=== PATIENT | male | born 1980 | race Caucasian/White ===

== ENCOUNTER 2022-10-22 16:44 | Emergency (ER) | payer SELFPAY ==
[~2022-10-22 16:44] MED LIST: Iopamidol-370 76% 500 ML MDV (1 ML CHARGE) ONE
[2022-10-22 17:10] LABS: #Monocytes 0.7 thou/uL (0.11-0.59); %Basophils 0.2 % (0.0-1.0); %Eosinophils 0.2 % (0.0-10.0); %Lymphocytes 5.7 % (21.0-51.0); %Monocytes 5.3 % (0.0-10.0); %Neutrophils 87.7 % (42.0-75.0); Hemoglobin 14.6 g/dL (14.0-18.0); Mean Corpuscular HGB CONC 36.6 g/dL (32.0-36.0); Mean Platelet Volume 9.2 fL (7.4-10.4); Platelet Count 224 10x3/uL (130-400); RBC Distribution Width 11.3 % (11.5-14.5); Red Blood Cell (RBC) Count 4.29 mill/uL (4.70-6.10); White Blood Cell (WBC) Count 12.5 10x3/uL (4.8-10.8)
[2022-10-22] MEDS ORDERED: Boostrix 0.5 ML (Tdap) VIAL (>/=7 yrs of age) ONE (17:31)
[2022-10-22 17:32] LABS: ALT (SGPT) 27 U/L (8-55); AST (SGOT) 29 U/L (5-34); Albumin 4.2 g/dL (3.5-5.0); Alkaline Phosphatase 52 U/L (40-110); Anion Gap 18 mmol/L (10-20); BUN (Urea Nitrogen) 10 mg/dL (8.9-20.6); Bilirubin, Total 1.4 mg/dL (0.2-1.2); CK (CPK) 173 U/L (30-200); Calc. Creatinine Clearance 0 mL/min (70-130); Calcium 9.2 mg/dL (7.8-10.44); Carbon Dioxide 19 mmol/L (22-29); Chloride 96 mmol/L (98-107); Estimated GFR 105; Globulin 2.5 g/dL (2.4-3.5); Glucose 104 mg/dL (70-105); Lipase 16 U/L (8-78); Potassium 2.9 mmol/L (3.5-5.1); Protein, Total 6.7 g/dL (6.0-8.3); Sodium 130 mmol/L (136-145)
[2022-10-22] MEDS ORDERED: fentaNYL 50 mcg/mL 1 mL Vial ONE ×2 (17:32→20:21)
[2022-10-22 17:43] LABS: Prothrombin Time 13.1 sec (12.0-14.7)
[2022-10-22 17:44] LABS: PTT 23.3 sec (22.9-36.1)
[2022-10-22] MEDS ORDERED: Potassium Chloride 20 MEQ TAB ONE (19:45)
[2022-10-22 20:12] LABS: Bilirubin Negative (Negative); Blood, Urine Negative (Negative); Clarity Clear (Clear); Glucose, Urine (Dipstick) Normal (Negative); Ketone, Urine 40 mg/dL (Negative); Leukocyte Negative Leu/uL (Negative); Nitrite Negative (Negative); Protein, Urine (Dipstick) 10 mg/dL (Neg-Trace); Specific Gravity, Urine 1.039 (1.002-1.036); Urobilinogen Normal mg/dL (Less than 2); pH, Urine 6.5 (5.0-9.0)
[2022-10-22] MEDS ORDERED: Ketorolac Tromethamine 30 MG/ML VIAL ONE (20:21)
== END 2022-10-22 22:30 | disposition home or self-care (01) ==
LOC: ERS 16:44
DX: S52.571A Other intraarticular fracture of lower end of right radius, initial encounter for closed fracture (principal); S30.1XXA Contusion of abdominal wall, initial encounter; S80.10XA Contusion of unspecified lower leg, initial encounter; V89.2XXA Person injured in unspecified motor-vehicle accident, traffic, initial encounter; Y92.410 Unspecified street and highway as the place of occurrence of the external cause; Z23 Encounter for immunization
CPT/HCPCS: 36415; 70450; 70498; 71045; 71260; 72125; 74177; 80053; 81003; 82550; 83690; 85025; 85610; 85730; 86850; 86900; 86901; 90715; 93005; J1885; J3010

== ENCOUNTER 2022-10-23 08:50 | Emergency (ER) | payer BC, SELFPAY ==
[2022-10-23] MEDS ORDERED: fentaNYL 50 mcg/mL 1 mL Vial ONE (10:50)
== END 2022-10-23 11:55 | disposition home or self-care (01) ==
LOC: ERS 08:50
DX: S32.402A Unspecified fracture of left acetabulum, initial encounter for closed fracture (principal); I10 Essential (primary) hypertension; F17.220 Nicotine dependence, chewing tobacco, uncomplicated; V89.2XXA Person injured in unspecified motor-vehicle accident, traffic, initial encounter
CPT/HCPCS: J3010

== ENCOUNTER 2022-10-23 16:34 | Inpatient (IN) | payer OTHER, BC ==
[2022-10-23] MEDS ORDERED: Ipratropium/Albuterol 3 ML NEB NEB PRN ×2 (17:39→17:40)
[2022-10-23] MEDS ORDERED: Dextrose 50% Abboject 50 ML SYRINGE SLOW IVP PRN (17:39)
[2022-10-23] MEDS ORDERED: Dextrose 5% in Water 1,000 ML IV PRN (17:39)
[2022-10-23] MEDS ORDERED: Ondansetron PF 4 MG/2 ML Vial IVP PRN (17:39)
[2022-10-23] MEDS ORDERED: Cyclobenzaprine 10 MG TAB PO PRN (17:40)
[2022-10-23] MEDS ORDERED: Morphine 2 MG/ML VIAL SLOW IVP PRN (17:40)
[2022-10-23] MEDS ORDERED: traMADol HCl 50 MG TAB PO PRN (17:40)
[2022-10-23] MEDS ORDERED: Sodium Chloride 0.9% 1,000 ML IV SCH (17:45)
[2022-10-23] MEDS ORDERED: Acetaminophen 325 MG TAB PO SCH (18:00)
[2022-10-23] MEDS ORDERED: Ketorolac Tromethamine 30 MG/ML VIAL IVP SCH (18:00)
[2022-10-23 18:02] VITALS: BMI 25.0
[2022-10-23 18:05] LABS: #Monocytes 0.4 thou/uL (0.11-0.59); #Neutrophils 6.2 thou/uL (1.40-6.50); %Basophils 0.3 % (0.0-1.0); %Eosinophils 0.5 % (0.0-10.0); %Lymphocytes 9.7 % (21.0-51.0); %Monocytes 5.3 % (0.0-10.0); %Neutrophils 83.9 % (42.0-75.0); Mean Corpuscular HGB CONC 33.3 g/dL (32.0-36.0); Mean Corpuscular Hemoglobin 33.8 pg (27.0-31.0); Mean Corpuscular Volume 101.6 fl (78.0-98.0); Mean Platelet Volume 9.3 fL (7.4-10.4); Platelet Count 197 10x3/uL (130-400); RBC Distribution Width 11.9 % (11.5-14.5); Red Blood Cell (RBC) Count 4.44 mill/uL (4.70-6.10); White Blood Cell (WBC) Count 7.3 10x3/uL (4.8-10.8)
[2022-10-23] MEDS: Lactated Ringer's 1,000 ML IV SCH ×2 (18:07→20:40)
[2022-10-23] MEDS: traMADol HCl 50 MG TAB PO SCH ×2 (18:10→23:38)
[2022-10-23] MEDS ORDERED: Potassium Chloride 20 MEQ in Premix Bag 1 BAG IVPB SCH (18:15)
[2022-10-23] MEDS ORDERED: Potassium Chloride 20 MEQ TAB PO SCH (18:15)
[2022-10-23 18:27] LABS: ALT (SGPT) 25 U/L (8-55); AST (SGOT) 28 U/L (5-34); Albumin 4.2 g/dL (3.5-5.0); Alkaline Phosphatase 51 U/L (40-110); Anion Gap 17 mmol/L (10-20); BUN (Urea Nitrogen) 8 mg/dL (8.9-20.6); Bilirubin, Direct 0.6 mg/dL (0.1-0.3); Bilirubin, Total 1.7 mg/dL (0.2-1.2); Calc. Creatinine Clearance 125 mL/min (70-130); Calcium 9.6 mg/dL (7.8-10.44); Carbon Dioxide 21 mmol/L (22-29); Chloride 98 mmol/L (98-107); Estimated GFR 103; Glucose 115 mg/dL (70-105); Magnesium 2.1 mg/dL (1.6-2.6); Protein, Total 7.3 g/dL (6.0-8.3); Sodium 132 mmol/L (136-145)
[2022-10-23 19:14] LABS: Prothrombin Time 13.2 sec (12.0-14.7)
[2022-10-23 19:15] LABS: PTT 24.6 sec (22.9-36.1)
[2022-10-23] MEDS: Senokot S 8.6-50 MG TAB PO SCH (20:40)
[2022-10-23] MEDS: Famotidine/PF 20 mg/2ml Vial SLOW IVP SCH (20:40)
[2022-10-23] MEDS ORDERED: Senokot S 8.6-50 MG TAB PO SCH (21:00)
[2022-10-23] MEDS: Acetaminophen 500 MG TAB PO SCH (23:38)
[2022-10-23] MEDS: Ketorolac Tromethamine 30 MG/ML VIAL IVP SCH (23:38)
[2022-10-24] MEDS: Acetaminophen 500 MG TAB PO SCH ×4 (05:37→23:04)
[2022-10-24] MEDS: traMADol HCl 50 MG TAB PO SCH ×4 (05:38→23:03)
[2022-10-24] MEDS: Ketorolac Tromethamine 30 MG/ML VIAL IVP SCH ×4 (05:38→23:05)
[2022-10-24 05:59] LABS: #Eosinphils 0.2 thou/uL (0.0-0.7); #Monocytes 0.4 thou/uL (0.11-0.59); #Neutrophils 3.9 thou/uL (1.40-6.50); %Basophils 0.6 % (0.0-1.0); %Eosinophils 3.2 % (0.0-10.0); %Monocytes 7.1 % (0.0-10.0); %Neutrophils 72.7 % (42.0-75.0); Hemoglobin 12.1 g/dL (14.0-18.0); Mean Corpuscular HGB CONC 34.3 g/dL (32.0-36.0); Mean Corpuscular Hemoglobin 33.4 pg (27.0-31.0); Mean Platelet Volume 9.3 fL (7.4-10.4); Platelet Count 149 10x3/uL (130-400); RBC Distribution Width 11.7 % (11.5-14.5); Red Blood Cell (RBC) Count 3.62 mill/uL (4.70-6.10); White Blood Cell (WBC) Count 5.4 10x3/uL (4.8-10.8)
[2022-10-24 06:15] LABS: Mean Corpuscular Volume 97.5 fl (78.0-98.0)
[2022-10-24 06:24] LABS: Anion Gap 12 mmol/L (10-20); BUN (Urea Nitrogen) 8 mg/dL (8.9-20.6); Calc. Creatinine Clearance 134 mL/min (70-130); Calcium 8.7 mg/dL (7.8-10.44); Carbon Dioxide 23 mmol/L (22-29); Chloride 99 mmol/L (98-107); Estimated GFR 109; Glucose 96 mg/dL (70-105); Magnesium 2.1 mg/dL (1.6-2.6); Phosphorus 3.1 mg/dL (2.3-4.7); Potassium 4.1 mmol/L (3.5-5.1); Sodium 130 mmol/L (136-145)
[2022-10-24 06:26] LABS: ALT (SGPT) 18 U/L (8-55); AST (SGOT) 18 U/L (5-34); Albumin 3.5 g/dL (3.5-5.0); Alkaline Phosphatase 40 U/L (40-110); Bilirubin, Direct 0.5 mg/dL (0.1-0.3); Bilirubin, Total 1.1 mg/dL (0.2-1.2); Protein, Total 5.8 g/dL (6.0-8.3)
[2022-10-24] MEDS: Famotidine/PF 20 mg/2ml Vial SLOW IVP SCH ×2 (08:42→20:37)
[2022-10-24] MEDS: Polyethylene Glycol 3350 17 GM Packet PO SCH (08:42)
[2022-10-24] MEDS: Senokot S 8.6-50 MG TAB PO SCH ×2 (08:42→20:37)
[2022-10-25] MEDS: Acetaminophen 500 MG TAB PO SCH ×4 (06:01→23:49)
[2022-10-25] MEDS: traMADol HCl 50 MG TAB PO SCH ×4 (06:02→23:49)
[2022-10-25] MEDS: Ketorolac Tromethamine 30 MG/ML VIAL IVP SCH (06:03)
[2022-10-25] MEDS ORDERED: Ibuprofen 200 MG TAB PO PRN (08:27)
[2022-10-25] MEDS: Polyethylene Glycol 3350 17 GM Packet PO SCH (09:03)
[2022-10-25] MEDS: Famotidine 20 MG TAB PO SCH ×2 (09:03→21:16)
[2022-10-25] MEDS: Senokot S 8.6-50 MG TAB PO SCH ×2 (09:03→21:16)
[2022-10-25] MEDS ORDERED: Hydrochlorothiazide 25 MG TAB PO SCH (12:45)
[2022-10-25] MEDS ORDERED: Losartan 25 MG TAB PO SCH (12:45)
[2022-10-25] MEDS: Carvedilol 3.125 MG TAB PO SCH (21:16)
[2022-10-26] MEDS: Acetaminophen 500 MG TAB PO SCH ×2 (06:13→12:01)
[2022-10-26] MEDS: traMADol HCl 50 MG TAB PO SCH ×2 (06:13→12:01)
[2022-10-26] MEDS: Carvedilol 3.125 MG TAB PO SCH (08:46)
[2022-10-26] MEDS: Famotidine 20 MG TAB PO SCH (08:46)
[2022-10-26] MEDS: Polyethylene Glycol 3350 17 GM Packet PO SCH (08:49)
[2022-10-26] MEDS: Senokot S 8.6-50 MG TAB PO SCH (08:50)
[2022-10-26] MEDS ORDERED: Hydrochlorothiazide 25 MG TAB PO SCH (09:00)
[2022-10-26] MEDS ORDERED: Losartan 25 MG TAB PO SCH (09:00)
[2022-10-26 12:10] VITALS: BP 132/88; TEMP 98.8
== END 2022-10-26 15:26 | disposition home or self-care (01) | DRG 536 ==
LOC: SJJU 17:14 → OBSVTOIN 17:39
PROVIDERS: ADMIT Surgery; ATTEND Surgery
DX: S32.402A Unspecified fracture of left acetabulum, initial encounter for closed fracture (principal); E87.1 Hypo-osmolality and hyponatremia; I10 Essential (primary) hypertension; S52.501D Unspecified fracture of the lower end of right radius, subsequent encounter for closed fracture with routine healing; F17.210 Nicotine dependence, cigarettes, uncomplicated; Z98.890 Other specified postprocedural states; Z98.52 Vasectomy status; Z90.49 Acquired absence of other specified parts of digestive tract; V89.1XXA Person injured in unspecified nonmotor-vehicle accident, nontraffic, initial encounter; Y92.89 Other specified places as the place of occurrence of the external cause
CPT/HCPCS: 29125; 36415; 70450; 70498; 71045; 71260; 72125; 74177; 80048; 80053; 80076; 81003; 82550; 83690; 83735; 84100; 85025; 85610; 85730; 86850; 86900; 86901; 90471; 90715; 93005; 96374; 96375; 96376; J1650; J1885; J3010; J3480; J7120; Q9967; S0028